=== PATIENT | female | born 1980 | race Caucasian/White ===

== ENCOUNTER 2017-03-17 22:45 | Observation (INO) | payer SELFPAY ==
[~2017-03-17] VITALS: Ht 116 cm; Wt 70.8 kg
[2017-03-17 23:06] VITALS: BP 114/73
[2017-03-17] MEDS ORDERED: PREN1TAB80 PO (23:09)
[2017-03-17] MEDS ORDERED: FERR134T2 PO (23:09)
[2017-03-17] MEDS ORDERED: FOLI0.4T30 PO (23:10)
[2017-03-17] MEDS ORDERED: CALC-51 PO (23:10)
[2017-03-17 23:33] LABS: APPEARANCE,URINE CLOUDY (CLEAR); GLUCOSE, URINE (UA) NEGATIVE (NEGATIVE); KETONES,URINE 15 mg/dL (NEGATIVE); LEUKOCYTE ESTERASE ,URINE NEGATIVE (NEGATIVE); OCCULT BLOOD,URINE NEGATIVE (NEGATIVE); PROTEIN,URINE NEGATIVE (NEGATIVE)
[2017-03-17 23:34] LABS: ADD UA MICROSCOPIC NO
== END 2017-03-18 00:30 | disposition home or self-care (01) ==
LOC: 4S 22:45
PROVIDERS: ADMIT Obstetrics & Gynecology; ATTEND Obstetrics & Gynecology
DX: O26.893 Other specified pregnancy related conditions, third trimester (principal); R10.9 Unspecified abdominal pain; O09.523 Supervision of elderly multigravida, third trimester; Z3A.38 38 weeks gestation of pregnancy
CPT/HCPCS: 59025; 80307 ×8; 81003; G0378

== ENCOUNTER 2017-03-28 10:46 | Observation (INO) | payer SELFPAY ==
[~2017-03-28] VITALS: Ht 155 cm; Wt 72.6 kg
[~2017-03-28 10:46] MED LIST: CALC-51 PO; FERR134T2 PO; FOLI0.4T30 PO; PREN1TAB80 PO
[2017-03-28 11:20] VITALS: BP 105/66
== END 2017-03-28 14:10 | disposition home or self-care (01) ==
LOC: 4S 10:46
PROVIDERS: ADMIT Obstetrics & Gynecology; ATTEND Obstetrics & Gynecology
DX: O62.9 Abnormality of forces of labor, unspecified (principal); O26.893 Other specified pregnancy related conditions, third trimester; R10.9 Unspecified abdominal pain; M54.9 Dorsalgia, unspecified; Z3A.39 39 weeks gestation of pregnancy
CPT/HCPCS: 59025; G0378

== ENCOUNTER 2017-03-30 07:10 | Inpatient (IN) | payer SELFPAY ==
[~2017-03-30] VITALS: Ht 160 cm; Wt 71.7 kg
[2017-03-30 07:39] VITALS: BP 111/81
[2017-03-30] MEDS ORDERED: RINGERS SOLUTION,LACTATED 1,000 ML IV PRN (07:58)
[2017-03-30] MEDS ORDERED: OXYTOCIN 30 UNITS/LACT RINGERS 500 ML IV ONE (07:58)
[2017-03-30] MEDS ORDERED: OXYTOCIN 30 UNITS/LACT RINGERS 500 ML IV PRN (07:58)
[2017-03-30] MEDS ORDERED: AMPICILLIN SODIUM 2 GM/NS 100 ML IV ONE (08:00)
[2017-03-30] MEDS ORDERED: CITRIC ACID/SODIUM CITRATE 30 ML SOLUTION UDCUP PO PRN (08:00)
[2017-03-30] MEDS ORDERED: METOCLOPRAMIDE HCL 5 MG/ML 2 ML VIAL IVP PRN (08:00)
[2017-03-30] MEDS: RINGERS SOLUTION,LACTATED 1,000 ML IV SCH ×2 (08:18→16:09)
[2017-03-30 08:30] LABS: BASOPHILS # (AUTO) 0.03 K/uL (0.00-0.20); BASOPHILS % (AUTO) 0.3 % (0.0-2.0); EOSINOPHILS # (AUTO) 0.04 K/uL (0.00-0.70); EOSINOPHILS % (AUTO) 0.34 % (1.0-6.0); HEMOGLOBIN 12.1 g/dL (12.0-16.0); LYMPHOCYTES # (AUTO) 2.2 K/uL (1.0-4.8); LYMPHOCYTES % (AUTO) 19.7 % (22.0-44.0); MEAN CORPUSCULAR HEMOGLOBIN 28.6 pg (26.0-34.0); MEAN CORPUSCULAR HGB CONC 33.5 G/dL (31.0-37.0); MEAN CORPUSCULAR VOLUME 85 fL (80-100); MONOCYTES # (AUTO) 0.8 K/uL (0.1-1.0); MONOCYTES % (AUTO) 7.6 % (2.0-9.0); NEUTROPHILS # (AUTO) 7.9 K/uL (1.8-7.7); NEUTROPHILS % (AUTO) 72.2 % (40.0-70.0); RED BLOOD CELL COUNT(AUTO) 4.22 MIL/uL (4.00-5.20); RED CELL DISTRIBUTION WIDTH 13.3 % (11.5-14.5)
[2017-03-30] MEDS: AMPICILLIN SODIUM 1 GM/NS 50 ML IV SCH ×3 (12:38→21:31)
[2017-03-30 15:36] LABS: RUBELLA SCREEN (IGG) IMMUNE (IMMUNE)
[2017-03-30] MEDS: FentaNYL CITRATE-PF 100 MCG/2 ML VIAL IVP PRN ×4 (15:39→19:42)
[2017-03-30] MEDS: OXYGEN THERAPY IH SCH (20:00)
[2017-03-30] MEDS ORDERED: FentaNYL/BUPIV 0.125%/NS/PF 200 ML ED ONE (20:46)
[2017-03-30] MEDS ORDERED: FentaNYL/BUPIV 0.125%/NS/PF 200 ML ED PRN (23:05)
[2017-03-30] MEDS ORDERED: DiphenhydrAMINE HCL 50 MG/ML VIAL IM PRN (23:15)
[2017-03-30] MEDS ORDERED: DiphenhydrAMINE HCL 50 MG/ML VIAL IVP PRN (23:15)
[2017-03-30] MEDS ORDERED: ONDANSETRON HCL 4 MG/2 ML VIAL IVP PRN (23:15)
[2017-03-30] MEDS ORDERED: NALBUPHINE HCL 10 MG/ML VIAL IVP PRN ×2 (23:15)
[2017-03-31] MEDS: AMPICILLIN SODIUM 1 GM/NS 50 ML IV SCH ×3 (01:05→09:16)
[2017-03-31] MEDS: RINGERS SOLUTION,LACTATED 1,000 ML IV SCH ×2 (05:38→21:11)
[2017-03-31] MEDS ORDERED: LIDOCAINE HCL 2%/EPI 1:200,000/PF 10 ML VIAL ONE ×2 (08:28)
[2017-03-31] MEDS ORDERED: MORPHINE SULFATE/PF 1 MG/ML 10 ML AMP ONE (10:54)
[2017-03-31] MEDS ORDERED: ACETAMINOPHEN 1000 MG/ISO-OSM 100 ML IV ONE ×2 (12:45→13:12)
[2017-03-31] MEDS ORDERED: NALBUPHINE HCL 10 MG/ML VIAL IVP PRN ×3 (12:45→13:00)
[2017-03-31] MEDS ORDERED: DiphenhydrAMINE HCL 50 MG/ML VIAL IVP PRN ×2 (12:45→13:00)
[2017-03-31] MEDS ORDERED: ONDANSETRON HCL 4 MG/2 ML VIAL IVP PRN ×2 (12:45→13:00)
[2017-03-31] MEDS ORDERED: MEPERIDINE-PF 25 MG/ML SYRINGE IVP PRN (12:45)
[2017-03-31] MEDS ORDERED: FentaNYL CITRATE-PF 100 MCG/2 ML VIAL IVP PRN (13:00)
[2017-03-31] MEDS ORDERED: MORPHINE SULFATE 10 MG/ML SYRINGE IVP PRN (13:00)
[2017-03-31] MEDS ORDERED: NALOXONE HCL 0.4 MG/ML VIAL IVP PRN (13:00)
[2017-03-31] MEDS ORDERED: OXYTOCIN 30 UNITS/LACT RINGERS 500 ML IV ONE (13:06)
[2017-03-31] MEDS ORDERED: OxyCODONE HCL/ACETAMINOPHEN 5-325 MG TABLET PO PRN ×2 (13:15)
[2017-03-31] MEDS ORDERED: LANOLIN 7 GM OINTMENT TP PRN (13:15)
[2017-03-31] MEDS ORDERED: OXYGEN THERAPY IH SCH ×2 (20:00)
[2017-03-31] MEDS: ACETAMINOPHEN 1000 MG/ISO-OSM 100 ML IV SCH (21:12)
[2017-04-01] MEDS: ACETAMINOPHEN 1000 MG/ISO-OSM 100 ML IV SCH (05:00)
[2017-04-01] MEDS: RINGERS SOLUTION,LACTATED 1,000 ML IV SCH (05:01)
[2017-04-01 06:22] LABS: BASOPHILS % (AUTO) 0.2 % (0.0-2.0); EOSINOPHILS % (AUTO) 0 % (1.0-6.0); HEMATOCRIT 33.2 % (36-46); HEMOGLOBIN 11.2 g/dL (12.0-16.0); LYMPHOCYTES # (AUTO) 1.7 K/uL (1.0-4.8); LYMPHOCYTES % (AUTO) 9.6 % (22.0-44.0); MEAN CORPUSCULAR HEMOGLOBIN 28.6 pg (26.0-34.0); MEAN CORPUSCULAR HGB CONC 33.7 G/dL (31.0-37.0); MEAN CORPUSCULAR VOLUME 85 fL (80-100); MONOCYTES # (AUTO) 1.3 K/uL (0.1-1.0); MONOCYTES % (AUTO) 7.3 % (2.0-9.0); NEUTROPHILS % (AUTO) 82.9 % (40.0-70.0); RED BLOOD CELL COUNT(AUTO) 3.91 MIL/uL (4.00-5.20); RED CELL DISTRIBUTION WIDTH 13.1 % (11.5-14.5)
[2017-04-01] MEDS ORDERED: METHYLERGONOVINE MALEATE 0.2 MG/ML VIAL ONE (07:02)
[2017-04-01] MEDS: MAGNESIUM HYDROXIDE SUSPENSION 30 ML UDCUP PO SCH ×2 (07:54→21:11)
[2017-04-01] MEDS: IBUPROFEN 800 MG TABLET PO PRN (21:07)
[2017-04-02] MEDS: OXYGEN THERAPY IH SCH (08:00)
[2017-04-02] MEDS: MAGNESIUM HYDROXIDE SUSPENSION 30 ML UDCUP PO SCH (09:52)
[2017-04-02] MEDS: IBUPROFEN 800 MG TABLET PO PRN (11:55)
[2017-04-02] MEDS ORDERED: IBUP-2070 PO (18:28)
[2017-04-02] MEDS ORDERED: FERR-89 PO (18:29)
[2017-04-02] MEDS ORDERED: DSS100 PO (18:30)
== END 2017-04-02 19:20 | disposition home or self-care (01) | DRG 766 ==
LOC: 4S 07:10 → OBSVTOIN 07:10 → 4S 03-31 15:31
PROVIDERS: ADMIT Obstetrics & Gynecology; ATTEND Obstetrics & Gynecology
PROC: 10D00Z1 Extraction of Products of Conception, Low, Open Approach (ICD-10-PCS; principal; 2017-03-31)
DX: O62.2 Other uterine inertia (principal); Z3A.39 39 weeks gestation of pregnancy; Z37.0 Single live birth
CPT/HCPCS: 76811; 86762; 86850; 86900; 86901; 87340; J0131; J0290; J2210; J2590; J2765; J3010; J3490; J7120